=== PATIENT | female | born 1950 | race Caucasian/White ===

== ENCOUNTER 2025-07-26 13:28 | Emergency (ER) | payer MEDICARE, BC ==
[~2025-07-26] VITALS: Ht 177.8 cm; Wt 85.0 kg
[2025-07-26 13:34] VITALS: TEMP 97.3
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
[2025-07-26] MEDS: ketorolac trometh 30MG/ML vial 30 MG/ML VIAL IM ONE (15:18)
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
[2025-07-26] MEDS ORDERED: ONDA-243 PO (15:32)
[2025-07-26 15:49] VITALS: BP 135/93; PULSE 61; RESP 18; O2SAT 96
== END 2025-07-26 16:00 | disposition home or self-care (01) ==
LOC: ER 13:29 → EDBD 13:29 → ER 16:00
DX: R51.9 Headache, unspecified (principal); V18.4XXA Pedal cycle driver injured in noncollision transport accident in traffic accident, initial encounter; Y93.55 Activity, bike riding; Y92.89 Other specified places as the place of occurrence of the external cause; Y99.8 Other external cause status
CPT/HCPCS: 70450; 99284